=== PATIENT | male | born 1960 | race Caucasian/White ===

== ENCOUNTER 2024-07-17 06:26 | Day surgery (SDC) | payer OTHER, SELFPAY ==
[2024-07-17] VITALS (11 sets, daily range): BP systolic 116–170; BP diastolic 75–95; BMI 34.4
[2024-07-17] MEDS: NORMOSOL-R 1000 IV (08:30)
[2024-07-17] MEDS: TYLENOL 1000 MG PO (09:23)
[2024-07-17] MEDS: VALIUM 5 MG PO (14:09)
== END 2024-07-17 16:40 | disposition home or self-care (01) ==
LOC: SDS 06:26
PROVIDERS: ATTENDING PHYSICIAN Otolaryngology
DX: H72.91 Unspecified perforation of tympanic membrane, right ear (principal); H90.A11 Conductive hearing loss, unilateral, right ear with restricted hearing on the contralateral side; H90.3 Sensorineural hearing loss, bilateral
CPT/HCPCS: 69631; 15769